=== PATIENT | male | born 1935 | race Native Hawaiian/Other Pacific Islander ===

== ENCOUNTER 2016-07-15 12:54 | Outpatient (CLI) | payer OTHER ==
[~2016-07-15 12:54] MED LIST: ALLO100T22 PO; ALLO300T23 PO; BUME1TAB19 PO; CALCITRIOL0.25 MCG OR; CARV3.12 PO; GLIM4TAB PO; INSUINJ20 SC; LEVO0.0529 PO; LEXAPRO20 MG OR; LISI5TAB10 PO; PANT40TA PO; PRINIVIL5 MG PO; SEROQUEL100 MG PO; SIMV40TA57 PO; VIT C/VIT E PO; VITAMIN D22000 UNIT PO; WARF2TAB7 PO; WARFARIN3 MG PO; [UNRECOGNIZED DRUG - CODE] MT
== END 2016-07-15 12:55 | disposition short-term general hospital (02) ==
LOC: AMB 12:54
DX: R06.02 Shortness of breath (principal)
CPT/HCPCS: A0425; A0429

== ENCOUNTER 2016-07-15 13:01 | Emergency (ER) | payer OTHER ==
[~2016-07-15] VITALS: Ht 175.3 cm; Wt 91.2 kg
[2016-07-15 15:33] LABS: POTASSIUM 3.4 mmol/L (3.6-5.2)
[2016-07-15 15:42] LABS: PLATELET COUNT 53 K/uL (142-355)
[2016-07-15 16:54] VITALS: BP 130/53; TEMP 98.1
== END 2016-07-15 17:06 | disposition home or self-care (01) ==
LOC: ED 13:01
DX: R06.09 Other forms of dyspnea (principal)
CPT/HCPCS: 36591; 80048; 83880; 85027; 85379; 87040; 99284

== ENCOUNTER 2016-09-16 12:01 | Inpatient (IN) | payer OTHER ==
[~2016-09-16] VITALS: Ht 170.2 cm; Wt 88.9 kg
[2016-09-16] VITALS (14 sets, daily range): BP systolic 77–197; BP diastolic 35–154; TEMP 97.6–98.6; Ht 170.2 cm; Wt 88.9 kg
[2016-09-16 12:48] LABS: PLATELET COUNT 133 K/uL (142-355)
[2016-09-16 13:26] LABS: PARTIAL THROMBOPLASTIN TIME 31.9 SECONDS (24.5-33.6)
--- NOTE | 2016-09-16 16:30 | NUR ---
RECEIVED PT FROM ER AND RECEIVED REPORT FROM LETTY MOONEY RN. TRANSFERRED PT TO ICU BED. PT JAUNDICE, GRUNTING AND GURGLING, PT WEARING NR, PLACED PT ON ICU MONITORS, O2 SAT 30'S RT AT BEDSIDE. DR. CASSIDY NOTIFIED. A FIB NOTED BP 77/35. PT HAS CENTRAL LINE TO R CHEST, PT HAS A RANDHA[place]. PT HAS EYES OPEN BUT NOT FOCUSED, PT NON RESPONSIVE.
--- NOTE | 2016-09-16 16:40 | NUR ---
DR. CASSIDY AT BEDSIDE. RECEIVED NEW ORDERS. RT DRAWING ABG.
--- NOTE | 2016-09-16 16:55 | NUR ---
DOPAMINE DRIP STARTED AT 5MCG. BLOOD SUGAR 159
--- NOTE | 2016-09-16 17:10 | NUR ---
DOPAMINE INCREASED TO 10MCG/HR BP 68/20. DR. CASSIDY AT BEDSIDE. RT AT BEDSIDE. PT PLACED ON 4L/NC.
--- NOTE | 2016-09-16 17:40 | NUR ---
PT MOVED TO ICU 2. RT AT BEDSIDE PT PLACED ON BIPAP. DR. CASSIDY TALKING WITH DR. MALONE.
--- NOTE | 2016-09-16 18:00 | NUR ---
DOPAMINE D/C'D AND LEVOPHED STARTED AT 8MCG/HR. HR 110'S-130'S. RECEIVED NEW ORDERS FOR CARDIAZEM.
--- NOTE | 2016-09-16 18:10 | NUR ---
CARDIAZEM 25MG IV GIVEN AND DRIP STARTED AT 5MG/HR. CLARA NERI RN AT BEDSIDE.
--- NOTE | 2016-09-16 18:34 | NUR ---
CLARA NERI RN AT BEDSIDE SETTING UP FOR DIALYSIS.
--- NOTE | 2016-09-16 18:47 | NUR ---
BP 67/31 LEVOPHED INCREASED TO 10MCG/HR. O2 SAT 80'S RT AT BEDSIDE.
--- NOTE | 2016-09-16 18:50 | NUR ---
PT OPEN EYES AND FOCUSES WHEN NAME IS CALLED.
--- NOTE | 2016-09-16 19:50 | NUR ---
[facility] RESP AT BEDSIDE DR JOZEF MONTERROSO AT BEDSIDE SEE CODE SHEET.
[2016-09-16 20:02] LABS: PLATELET COUNT 139 K/uL (142-355)
[2016-09-16 20:17] LABS: PLATELET COUNT 153 K/uL (142-355)
--- NOTE | 2016-09-16 20:32 | NUR ---
1946 Respiratory notified. 1946 Code Blue called. Respiratory at bedside. No pulse felt. 1947 Sandra Thomas, RN, performing chest compressions. Joaquin of Respiratory bagging Patient at this time. 1948 Dr. Russo and Concha Argueta, RN, of ER at bedside. 1948 Lab at bedside and blood drawn. 1949 Marina Vaughan RN, performing compressions. Joaquin of Respiratory continuing to bag patient. 1949 Epi (1st) pushed via right central line. 1950 Jaime Flaherty RN, of ER at bedside. Pt placed on Khari at this time. Joaquin of Respiratory ventilating patient. 1951 Khari stopped respiratory continuing to ventilate patient. No pulse felt by Marina Vaughan RN. Khari resumed. 1951 Epi (2nd) pushed. 1953 Dr. Lara notified of Patient's change in condition by Marina Vaughan RN.
[2016-09-16 20:41] LABS: POTASSIUM 5.8 mmol/L (3.6-5.2)
--- NOTE | 2016-09-16 21:20 | NUR ---
1955 Epi (3rd) given via IVP to central line. 1955 Khari stopped. No pulse found @ femoral or carotid arteries by Dr. Russo. Khari resumed. 1956 Sodium Bicarb given to central line via central line. 1958 Epi (4th) given via IVP to central line. 1999 Khari performing compressions. Joaquin of Respiratory at bedside. 1999 Sandra Thomas, RN, assessed Pt's pupils at this time. Bilateral pupils are fixed and dialated at this time. 2001 Epi (5th) given via IVP through central line. 2001 Galina Alaniz, TOMMY, received a critical WBC count from lab of 35.4. Results given to Dr. Russo, ER Physician. 2003 Blood drawn by Susan Arriaza RN, from dialysis access arterial site. 2004 Epi (6th) given via IVP to central line at this time. 2006 Khari stopped. Pt Asystole per monitor at this time. 2007 Code called at this time by Dr. Russo, ER Physician. 2007 Mrs. Haider notified [facility] at this time. [facility] declined d/t to patients condition and diagnosis. 2008 Dr. Russo out to speak with and family members in waiting room. 2017 Mrs. Haider Abundio, RN, reported to Dr. Lara Patient is . Dr. Lara v/o understanding. 2021 I notified Tawnya Hutson. He advised Tawnya Combs, is to be contacted. 2030 Tawnya Combs, in ICU at this time. 2034 Tawnya Combs, to speak with family in waiting room. Patient's daughter executed document authorizing Patient's body to be released to [facility], noted and carried out. 2114 Tawnya Combs, notified [facility]. Mr. Hinton ordered all IV lines, central line and wolf cath to be removed at this time. 2124 IV, central line and wolf cath d/c'd from Patient at this time. 2149 [facility] here to transport Patient's body to home. 2157 Patient's body released to [facility] for transport at this time.
--- NOTE | 2016-09-16 21:55 | NUR ---
ON DIALYSIS RESP [address] HASKINS AT BEDSIDE RESP CEASED RESP BAGGING PT
== END 2016-09-16 21:50 | disposition expired | DRG 682 ==
LOC: ED 12:01 → ICU 13:35
PROVIDERS: Emergency Medicine
DX: N17.9 Acute kidney failure, unspecified (principal); J96.00 Acute respiratory failure, unspecified whether with hypoxia or hypercapnia; I50.23 Acute on chronic systolic (congestive) heart failure; I48.92 Unspecified atrial flutter; I13.0 Hypertensive heart and chronic kidney disease with heart failure and stage 1 through stage 4 chronic kidney disease, or unspecified chronic kidney disease; N18.4 Chronic kidney disease, stage 4 (severe); I48.91 Unspecified atrial fibrillation; I46.9 Cardiac arrest, cause unspecified; J44.9 Chronic obstructive pulmonary disease, unspecified; Z86.73 Personal history of transient ischemic attack (TIA), and cerebral infarction without residual deficits; E11.9 Type 2 diabetes mellitus without complications
CPT/HCPCS: 36558; 36600; 51702; 80053; 80307; 81000; 82550; 82553; 82805; 83605; 83880; 84484; 85027; 85610; 85730; 93005; 94760; 96361; 96374; 96375; 96376; 99285; C1768; G0479; J0171; J1265; J1644; J2060; J2270; J3490

== ENCOUNTER → 2016-09-16 12:01 | Outpatient (CLI) | payer OTHER | END | disposition short-term general hospital (02) | LOC: AMB 12:01 | DX: I46.9 Cardiac arrest, cause unspecified (principal) | CPT/HCPCS: A0425; A0427 ==